=== PATIENT | female | born 1955 | race Caucasian/White ===

== ENCOUNTER → 2022-10-02 | Outpatient (CLI) | payer OTHER | LOC: MERGE 14:38 → ORTHO 14:38 | PROVIDERS: ATTEND Orthopaedic Surgery | DX: S82.122D Displaced fracture of lateral condyle of left tibia, subsequent encounter for closed fracture with routine healing (principal); X58.XXXD Exposure to other specified factors, subsequent encounter | CPT/HCPCS: 99213 ==

== ENCOUNTER → 2022-10-23 | Outpatient (CLI) | payer OTHER ==
--- NOTE | 2022-10-23 11:59 | Diagnostic Imaging Report ---
Indication: Left knee pain 4 views of left knee show depressed fracture of the lateral tibial plateau. The patella appears to be grossly intact. Fibula and femur appear to be grossly intact. IMPRESSION: Depressed fracture of the left lateral tibial plateau. Position and alignment appears unchanged compared to outside films dated 09/27/2022. Dictated by: Dictated on workstation # [id number]
== END ==
LOC: ORTHO 10:39
PROVIDERS: ATTEND Orthopaedic Surgery
DX: S82.002D Unspecified fracture of left patella, subsequent encounter for closed fracture with routine healing (principal); X58.XXXD Exposure to other specified factors, subsequent encounter
CPT/HCPCS: 73564; G0463; 99213

== ENCOUNTER → 2022-11-25 | Outpatient (CLI) | payer OTHER ==
--- NOTE | 2022-11-25 14:31 | Diagnostic Imaging Report ---
INDICATION: Knee pain, fracture follow-up COMPARISON: 10/23/2022 TECHNIQUE: 3 radiographs left knee dated 11/25/2022 FINDINGS: Slightly depressed fracturing involving the lateral aspect of the lateral tibial plateau is again identified. Overall alignment is stable from the prior examination. Persisting fracture lucency does remain. Mild sclerosis is noted within the region. No new fracture or dislocation. No destructive osseous process. Small knee joint effusion, stable. No suspicious radiopaque foreign body. IMPRESSION: Mildly healing lateral tibial plateau fracture remaining in stable alignment without new acute osseous abnormality. Stable small knee joint effusion. Dictated by: Dictated on workstation # [id number]
== END ==
LOC: ORTHO 10:55
PROVIDERS: ATTEND Orthopaedic Surgery
DX: S82.142D Displaced bicondylar fracture of left tibia, subsequent encounter for closed fracture with routine healing (principal); X58.XXXD Exposure to other specified factors, subsequent encounter
CPT/HCPCS: 73562; G0463; 99213